=== PATIENT | male | born 2005 | race Caucasian/White ===

== ENCOUNTER 2024-05-24 17:37 | Emergency (ER) | payer OTHER, SELFPAY ==
[2024-05-24 17:41] VITALS: BP 134/66
[2024-05-24 17:53] LABS: % Basophils 0.4 % (0-2); % Eosinophils 2.2 % (0-6); % Immature Granulocytes 0.3 % (0-0.5); % Lymphocytes 13.3 % (20.5-51.1); % Monocytes 9.9 % (1.7-9.3); % Neutrophils 73.9 % (42.2-75.2); Absolute Basophils 0.1 10^3/uL (0-0.2); Absolute Eosinophils 0.3 10^3/uL (0-0.7); Absolute Lymphocytes 1.6 10^3/uL (1.2-3.4); Absolute Monocytes 1.2 10^3/uL (0.1-0.6); Absolute Neutrophils 8.9 10^3/uL (1.4-6.5); Hematocrit 40.3 % (39.0-52.0); Hemoglobin 14.4 g/dL (13.0-18.0); Mean Corp Hgb Conc. 35.7 g/dL (33.0-37.0); Mean Corpuscular Hgb 31.2 pg (27.0-31.0); Mean Corpuscular Volume 87.2 fL (80.0-94.0); Mean Platelet Volume 9.3 fL (7.4-10.4); Nucleated Red Blood Cells % 0 % (-); Platelet Count 324 10^3/uL (130-400); Red Blood Cell Count 4.62 10^6/uL (4.70-6.10); Red Cell Dist. Width 11.7 % (11.5-14.5)
[2024-05-24 18:08] LABS: ALT (SGPT) 13 U/L (0-50); AST (SGOT) 19 U/L (17-59); Albumin 4.2 g/dl (3.5-5.0); Alkaline Phosphatase 66 U/L (38-126); Blood Urea Nitrogen 16 mg/dl (9-20); Calcium 9.3 mg/dl (8.4-10.2); Carbon Dioxide 26 mmol/L (22-30); Chloride 105 mmol/L (98-107); Glucose 96 mg/dl (70-99); Potassium 4.2 mmol/L (3.5-5.1); Sodium 141 mmol/L (135-145); Total Bilirubin 0.5 mg/dl (0.2-1.3); eGFR > 60.00
--- NOTE | 2024-05-24 19:21 | ED.GENMED ---
History of Present Illness
General
Chief Complaint: Skin Problem
Source: patient
Exam Limitations: none
Time Seen by Provider: 05/24/24 18:43
Nursing documentation reviewed up to this point in time: agreed with
History of Present Illness
History of Present Illness:
19-year-old male sent from the urgent care for evaluation of a pilonidal cyst, tailbone pain for a few days seen his chiropractor in urgent care negative x-rays increased swelling and fever sent to the ER for evaluation had some spontaneous drainage
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
Review of Systems
Review of Systems
All Other Systems: Not applicable
Constitutional: Reports fever, fatigue and chills
Musculoskeletal: Reports back pain
Phy Exam
Physical Exam
Physical Exam:
Physical Exam
General: Nontoxic 19-year-old looks uncomfortable
Neck: No jaundice
Heart: Regular
Lungs: no acute respiratory distress. clear bilaterally
Buttock, abscess to the gluteal cleft
Neuro: alert and oriented. no focal neurological deficits
Skin: no rash
Psychiatric: well kept. interactive and cooperative
Extremities: no edema.
Course
Orders/Labs/Results
Orders:
Orders
05/24/24 17:45
CMP [Comprehensive Metabolic Panel] Urgent
Complete Blood Count/With Diff Urgent
05/24/24 19:36
Amoxicillin 875 mg/Clav 125 mg [Augmentin 875 mg/125 mg] 1 tablet PO NOW STA
Ibuprofen [Motrin] 600 mg PO NOW STA
Abnormal Lab Results
05/24/24
17:45
WBC 12.0 H 10^3/uL
(4.8-10.8)
RBC 4.62 L 10^6/uL
(4.70-6.10)
MCH 31.2 H pg
(27.0-31.0)
Absolute Neuts (auto) 8.9 H 10^3/uL
(1.4-6.5)
Absolute Monos (auto) 1.2 H 10^3/uL
(0.1-0.6)
Lymphocytes % 13.3 L %
(20.5-51.1)
Monocytes % 9.9 H %
(1.7-9.3)
05/24/24 17:45
05/24/24 17:45
Vital Signs
Initial and Last Documented VS:
Initial Vital Signs
Temp Pulse Resp BP Pulse Ox
98.2 F 78 18 134/66 98
05/24/24 17:41 05/24/24 17:41 05/24/24 17:41 05/24/24 17:41 05/24/24 17:41
Last Documented Vital Signs
Temp Pulse Resp BP Pulse Ox
98.2 F 78 18 134/66 98
05/24/24 17:41 05/24/24 17:41 05/24/24 17:41 05/24/24 17:41 05/24/24 17:41
Procedures
Incision/Drainage/Joint Aspiration
Gluteal cleft:
Anethesia: 1% Lidocaine with Epi
Preparation: cleaned with Betadine
Type of procedure: drain
Nature of site: abscess
Description of abscess: greater than 3cm
How much fluid was obtained?: large amount
Fluid description: purulent
Treatment: packed with gauze
Additional information:
Verbal consent timeout #11 blade local anesthetic
MDM/Problems Addressed
Differential Diagnosis Includes:
Pilonidal cyst, abscess,
MDM/Problems Addressed:
Pilonidal cyst
Acute Exacerbation and/or Progression of Chronic Illness:
Works as a director
*Critical Care Note
Total Time (30-74mins, 75-104mins- exclusive of procedures): Not Applicable
Update Note
Update Note:
Update abscess drain packed patient tolerated well, follow-up with the surgeon outpatient
ED Attending Note
-
Portions of this chart may have been created with voice recognition software.� Occasional wrong word or��sound alike� substitutions may have occurred due to the inherent limitations of voice recognition software.
Discharge Plan
Departure
Patient Disposition: Home (Routine Discharge)
Date of Disposition: 05/24/24
Time of Disposition: 19:38
Patient with high blood pressure during this ER visit?: No
Condition: Good
Covid-19: Not Applicable
Discharge Problem:
Infected pilonidal cyst
Instructions: Pilonidal Cyst (DC), Boil, Adult ED
Prescriptions:
New
ibuprofen 600 mg tablet
600 mg PO Q8H PRN (Reason: Pain) Qty: 20 0RF
amoxicillin-pot clavulanate 875-125 mg tablet
1 tab PO Q12H Qty: 10 0RF
Referrals:
NONE,* [Family Provider] -
Shayan Rocha MD [Active] - Follow up in 10 days
Activity Restrictions/Additional Instructions:
Keep area covered for the next few days, perform sitz bath's, you can pull the packing out in 2 to 3 days by yourself if it does not fall out on its own
Follow-up with Dr. Rocha colorectal surgeon in 1 to 2 weeks
Call tomorrow for an appointment tell the staff you are in the ER
Interventions
Interventions:
*Risk Screen - Suicide Last Done: 05/24/24 17:41
*General Assessment Last Done: 05/24/24 17:41
*Neglect/Abuse Screening Last Done: 05/24/24 17:41
*ED COVID-19 Vaccine History Last Done: 05/24/24 18:11
Discharge Date and Time
Print Language: YAKUT
[2024-05-24] MEDS: MOTRIN 600 MG PO (19:46)
[2024-05-24] MEDS: AUGMENTIN 875 MG/125 MG 1 TABLET PO (19:47)
[2024-05-24 19:50] VITALS: BP 139/95
== END 2024-05-24 20:09 | disposition home or self-care (01) ==
LOC: EMR 17:37
PROVIDERS: EMERGENCY PHYSICIAN Emergency Medicine
DX: L05.91 Pilonidal cyst without abscess (principal)
CPT/HCPCS: 99283; 10060; 80053; 85025